=== PATIENT | female | born 1985 | race Caucasian/White ===

== ENCOUNTER 2018-07-09 00:16 | Emergency (ER) | payer MEDICAID ==
[~2018-07-09] VITALS: Ht 170.2 cm; Wt 54.5 kg
[2018-07-09] MEDS ORDERED: NO HOME MEDS (00:35)
--- NOTE | 2018-07-09 00:49 | NUR ---
Patient returns from CT. She was escorted to CT with CAROLYNN [place].
[2018-07-09 00:55] LABS: CLARITY,URINE CLOUDY (Clear); COLOR,URINE YELLOW (Yellow); GLUCOSE, URINE NEGATIVE (Neg); KETONES,URINE TRACE mg/dl (Neg); LEUKOCYTE ESTERASE ,URINE NEGATIVE (Neg); NITRITES, URINE NEGATIVE (Neg); OCCULT BLOOD,URINE LARGE (Neg); PROTEIN,URINE >=300 mg/dl (Neg); URINE HCG NEGATIVE (NEG); UROBILINOGEN,URINE 0.2 E.U/dL (0.2-1.0)
[2018-07-09 01:00] LABS: UA COLLECTION TYPE CLN CATCH MIDSTREAM
[2018-07-09 01:06] LABS: URINE AMPHETAMINE SCREEN NEGATIVE (Neg); URINE BARBITUATE SCREEN NEGATIVE (Neg); URINE BENZODIAZEPINES SCREEN NEGATIVE (Neg); URINE CANNABINOID SCREEN POSITIVE (Neg); URINE COCAINE SCREEN NEGATIVE (Neg); URINE METHADONE SCREEN NEGATIVE (Neg); URINE OPIATE SCREEN NEGATIVE (Neg); URINE PHENCYCLIDINE SCREEN NEGATIVE (Neg)
[2018-07-09 01:07] LABS: BASOPHILS % (AUTO) 0.6 % (0-1); EOSINOPHILS % (AUTO) 0.6 % (0-6); HEMATOCRIT 43.8 % (35.0-45.0); HEMOGLOBIN 14.6 g/dl (12.0-16.0); LYMPHOCYTES % (AUTO) 29.4 % (21-51); MEAN CORPUSCULAR HEMOGLOBIN 32.1 PG (27.0-31.0); MEAN CORPUSCULAR HGB CONC 33.3 g/dL (33.0-36.5); MEAN CORPUSCULAR VOLUME 96.5 FL (78-98); MEAN PLATELET VOLUME 7.7 FL (7.4-10.4); MONOCYTES # (AUTO) 0.5 X10'3 (0-0.9); MONOCYTES % (AUTO) 7.3 % (2-12); NEUTROPHILS # (AUTO) 4.3 X10'3 (1.8-7.7); NEUTROPHILS % (AUTO) 62.1 % (42-75); PLATELET COUNT 237 X10'3 (140-440); RED BLOOD COUNT 4.54 X10'6 (4.20-5.60); RED CELL DISTRIBUTION WIDTH 13.4 % (11.5-14.5); WHITE BLOOD COUNT 6.9 X10'3 (4.5-11.0)
--- NOTE | 2018-07-09 01:09 | NUR ---
Patient offered to obtain medication from MD to help calm her down. She politely declines and states, "I don't take medication, thank you." She requests to perform yoga in her room which is allowed as long as she is not disturbing other patients.
--- NOTE | 2018-07-09 01:17 | NUR ---
Patient up and pacing back and forth. Phone retrieved to get her mother's phone number. When I offered her the phone to pull the contact information she became agitated again stating, "Days!? How many days are you going to keep me here against my will!?" despite having explained how a 5150 hold will potentially proceed several times. She declines to obtain the information from the phone at this time. Phone placed in patient's chart for the inevitable need for it sooner rather than later.
[2018-07-09 01:18] LABS: BACTERIA,URINE 2+ /HPF (Neg); MUCUS STRANDS MANY /LPF (Neg); SQUAMOUS EPITHELIAL CELL,UR MANY /LPF (FEW)
[2018-07-09 01:19] LABS: RBC,URINE 0-2 /HPF (0-2)
[2018-07-09 01:19] LABS: ALANINE AMINOTRANSFERASE 11 U/L (12-78); ALBUMIN 4.5 G/DL (3.4-5.0); ALBUMIN/GLOBULIN RATIO 1.4 (1.1-1.5); ALKALINE PHOSPHATASE 59 IU/L (46-116); ANION GAP 18 (8-16); ASPARTATE AMINO TRANSFERASE 21 U/L (10-37); BILIRUBIN,TOTAL 0.4 MG/DL (0.1-1.0); BLOOD UREA NITROGEN 14 MG/DL (7-18); BUN/CREATININE RATIO 17.3 (6.6-38.0); CALCIUM 9.4 MG/DL (8.5-10.1); CHLORIDE 109 MMOL/L (99-107); CREATININE 0.81 MG/DL (0.40-0.90); GLUCOSE 101 MG/DL (70-104); POTASSIUM 3.2 MMOL/L (3.5-5.1); SODIUM 146 MMOL/L (135-145); TOTAL CARBON DIOXIDE 18.9 MMOL/L (24-32); TOTAL PROTEIN 7.8 G/DL (6.4-8.2); eGFR 80 ML/MIN
[2018-07-09 01:28] LABS: ETHANOL 0.203 GM/DL (0.0-0.010)
--- NOTE | 2018-07-09 01:28 | NUR ---
Patient approaches nurses stating with an agressive tone stating that she is going to leave because she has children and a job. She states, "what am I supposed to tell my job? What if people talk shit about me while my children are at school. How long do I have to be here?" Patient was again explained the process of being on a 5150 hold. She is not satisfied with my explaination and states that, "I have done nothing wrong. I can drink in my own home and be pulled out because that faggot called the police on me?" Patient states that she is not mad at me or the staff, but her tone and demeanor indicate otherwise. After our conversation, patient ran back to her back and swung the curtain shut. Curtains re-opened and now patient is sobbing uncontrollably in bed.
--- NOTE | 2018-07-09 01:34 | NUR ---
Patient requesting more water and states, "just point me in the right direction, I guess I have nothing else to do!". Water provided.
--- NOTE | 2018-07-09 01:38 | NUR ---
Patient yelling across the room demanding her lab results and, "justification for me being here!" Patient asks again why she is here and I politely try to explain while she yells curse words at me and saying that she is going to [facility] the [facility].
--- NOTE | 2018-07-09 01:51 | NUR ---
Patient requesting a, "buddhist to meditate in. You guys are being really obnoxious and disturbing me" despite our conversation being nothing more than low whispers. Ear plugs provided and then patient got up to the restroom.
--- NOTE | 2018-07-09 01:54 | NUR ---
Patient is unusually quiet in restroom and has been in and out several times since arriving a short time ago. Knocked on the door to the restroom and found the patient sitting against the door. She states, "I'm trying to find a quiet place to go where no one can see me." I explained to her that she may not hide in the restroom and we need to be able to see her for her safety. Patient went back to her room on her own and is now sobbing.
[2018-07-09] MEDS ORDERED: potassium Cl 20 mEq SR tablet PO STA (02:01)
[2018-07-09] MEDS ORDERED: LORazepam 2 mg/ml vial IM ONE (02:05)
[2018-07-09] MEDS ORDERED: diphenhydrAMINE 50 mg/ml inj IM ONE (02:05)
[2018-07-09] MEDS ORDERED: haloperidol lactate 5mg/ml inj IM ONE (02:05)
--- NOTE | 2018-07-09 02:19 | NUR ---
Patient got up to restroom again to sit and sob hysterically in the restroom. I was able to convince the patient to get back to bed on her own accord. I spoke to the patient again about the use of medications to get her through this crisis which she agrees to accept. Spoke to Dr. Grissom who places IM orders as well as potassium replacement. Patient educated on medications and medications provided with her permission. I attempted to reassure the patient that we are here to help her and make sure that she gets home as quickly and safely as possible which she seemed to accept.
--- NOTE | 2018-07-09 03:08 | NUR ---
Patient is sleeping comfortably on her left side with even, unlabored breathing and no signs of distress.
--- NOTE | 2018-07-09 04:48 | NUR ---
telepsych completed. Psychiatrist recommends keeping the patient on a 5150 and re-evaluating in 8-10 hours once the ETOH has cleared her system. Patient fell back to sleep after telepsych was completed.
[2018-07-09] MEDS ORDERED: LORazepam 1 MG tablet PO PRN (06:30)
[2018-07-09] MEDS: folic acid 1mg tablet PO SCH ×2 (08:00→20:00)
[2018-07-09] MEDS: thiamine 100mg tablet PO SCH ×2 (08:00→20:00)
--- NOTE | 2018-07-09 11:29 | NUR ---
patient back to bed sleeping, got up breifly for water and bathroom and put herself back to bed
--- NOTE | 2018-07-09 12:45 | NUR ---
relieving RN for lunch, pt is sleeping, resp even and unlabored
--- NOTE | 2018-07-09 17:35 | NUR ---
patient approached the desk and asked to use the phone to call home , she is talking quietly on her bed now.
--- NOTE | 2018-07-09 17:52 | NUR ---
provided hygiene supplies
--- NOTE | 2018-07-09 18:30 | NUR ---
Report rec;d, care assumed, resting in bed. No needs voiced at this time. Will continue to monitor.
--- NOTE | 2018-07-09 19:05 | NUR ---
Up to [facility]
--- NOTE | 2018-07-09 19:32 | NUR ---
Ate dinner without issues, currently resting in bed with eyes closed.
--- NOTE | 2018-07-09 20:35 | NUR ---
Resting in bed, appearing to sleep, will monitor.
--- NOTE | 2018-07-09 21:21 | NUR ---
Resting in bed, appearing to sleep soundly, though easily aroused. Refused medications. Will continue to monitor.
--- NOTE | 2018-07-09 22:46 | NUR ---
Resting in bed, appearing to sleep with eyes closed, resp even and unlabored. Will monitor.
--- NOTE | 2018-07-09 23:34 | NUR ---
Resting in bed, appearing to sleep
--- NOTE | 2018-07-10 00:14 | NUR ---
Eyes closed, resting in bed with even and unlabored resp. Appearing to sleep comfortably without new issues or concerns noted. Will continue to monitor.
--- NOTE | 2018-07-10 01:23 | NUR ---
In bed, appearing to sleep.
--- NOTE | 2018-07-10 02:58 | NUR ---
Appearing to sleep, no new concerns or issues noted. Will continue to monitor.
--- NOTE | 2018-07-10 03:52 | NUR ---
Resting in bed with eyes closed, appearing to sleep without new issues or concerns noted, will continue to monitor for changes.
--- NOTE | 2018-07-10 05:04 | NUR ---
Resting in bed, appearing to sleep, will continue to monitor.
--- NOTE | 2018-07-10 05:45 | NUR ---
Vital signs taken by Tech. Cooperative with cares this morning, will monitor.
[2018-07-10 06:04] VITALS: BP 115/79
--- NOTE | 2018-07-10 06:30 | NUR ---
report recieved. pt resting comfortably in bed. no needs at this time.
[2018-07-10] MEDS: thiamine 100mg tablet PO SCH (08:12)
[2018-07-10] MEDS: folic acid 1mg tablet PO SCH (08:12)
--- NOTE | 2018-07-10 08:34 | NUR ---
pt calm and resting in bed. occationally uses restroom. discharge papers given. pt to be sent upstairs to behavior health unit when room is ready.
--- NOTE | 2018-07-10 09:35 | NUR ---
pt calm and cooperative. Escorted upstairs to mental health unit with RN and security public safety officer. pt sent with her belongings.
== END 2018-07-10 09:35 | disposition home or self-care (01) ==
LOC: ER 00:18
DX: F23 Brief psychotic disorder (principal); F10.129 Alcohol abuse with intoxication, unspecified; F12.90 Cannabis use, unspecified, uncomplicated; E87.6 Hypokalemia; Y90.0 Blood alcohol level of less than 20 mg/100 ml
CPT/HCPCS: 36415; 70450; 80053; 80305; 80320; 81001; 81025; 84443; 85025; 96372; 99285; J1200; J1630; J2060

== ENCOUNTER 2018-07-10 07:57 | Inpatient (IN) | payer MEDICAID ==
[~2018-07-10] VITALS: Ht 172.7 cm; Wt 53.2 kg
[~2018-07-10 07:57] MED LIST: NO HOME MEDS
[2018-07-10 10:39] VITALS: BP 142/102
--- NOTE | 2018-07-10 12:45 | NUR ---
ADMISSION NOTE Nursing Progress Note: Patient admitted at 0936 from [facility] ED Legal hold: 5150 Client on voluntary/involuntary status for GD/DTS/DTO: DTS/DTO Report received from nurse with use of SBAR[]. Why are they here: The patient was placed on 5150 by police after she was physically aggressive with her and was unable to calm down in the presence of police. She has been having on-going concerns with anxiety, depression, paranoia, suicidal ideation, inability to cope. She minimized her actions and blamed her . She exhibits poor judgment. She was unable to formulate a viable safety plan and is a danger to herself and others. Assessment What has happened this shift: The patient was admitted to unit. Her belongings were inventoried and she was oriented to unit. She is depressed and tearful at times. Denies suicidal or homicidal thoughts and states, "I just want to go home to my children." Minimizes incident with police stating, "it's just the alcohol, I would never do that if I had not been drinking." She reports that she lives with her ex as "temporary roommates" and they are actually . 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 She reports having "trouble" with alcohol her whole life and states her father was an alcoholic and left the family 25 years ago, her mother also drinks and is mentally ill and has 3 sisters with similar issues. She has never been diagnosed with a mental condition or had any therapy or help. She is willing and states she would like to be helped. She took a shower, is alert and oriented, calm and cooperative. She rated her level of depression as a 1 and a 1-10 scale. S/I, H/I: Denies A/VH: Denies Sleep:None ADL's:Self Group attendance:Yes Were meds taken:N/A Any med S/E: N/A Mental Status Exam Appearance:Neat and clean Eye contact:Good Behavior:Cooperative, calm, tearful Speech:Normal Mood:Depressed Affect:Tearful, sad Thought process:Intact Thought Content:Worried about kids Cognition:A&Ox4 Insight: Poor Judgment: Poor Interventions PRN's used: None Therapeutic interventions: 1:1 assessment, q15m safety checks, therapeutic listening and environment, reassurance Restraints/seclusion/emergency medication: None Justification of Continued Inpatient Treatment: Patient in crisis, recent altercation with ex- in the home, recent anxiety, paranoia and suicidal thoughts, exhibits poor judgment. She is unable to formulate a safety plan.
[2018-07-10] MEDS ORDERED: tuberculin, purif. prot. deriv. 5 units/0.1ml ID ONE (12:55)
[2018-07-10] MEDS ORDERED: mag hydrox/Alum hydrox/simeth 30ml oral suspension PO PRN (12:55)
[2018-07-10] MEDS ORDERED: acetaminophen 325mg tablet PO PRN ×2 (12:55)
[2018-07-10] MEDS ORDERED: magnesium hydroxide 30ml (MOM) UD suspension PO PRN (12:55)
[2018-07-10 19:00] VITALS: BP 128/86
[2018-07-10] MEDS: LORazepam 1 MG tablet PO PRN (21:33)
--- NOTE | 2018-07-10 23:39 | NUR ---
ADMISSION NOTE Nursing Progress Note: Patient admitted at 0936 from [facility] ED Legal hold: 5150 Client on voluntary/involuntary status for GD/DTS/DTO: DTS/DTO Report received from nurse with use of KEKE Morrell RN Why are they here: The patient was placed on 5150 by police after she was physically aggressive with her and was unable to calm down in the presence of police. She has been having on-going concerns with anxiety, depression, paranoia, suicidal ideation, inability to cope. She minimized her actions and blamed her . She exhibits poor judgment. She was unable to formulate a viable safety plan and is a danger to herself and others. Assessment What has happened this shift: Pt was sitting in bed at change of shift. 1:1 assessment completed at bedside. Pt denies s/i, denies h/i. Appears to be some what anxious, depressed. Pt states she is here because "My called the police on me because I was drunk and in his face." Pt was initially withdrawn stating she is hoping being here will provide her with "the ability to cope better with my feelings and emotions rather than substance abuse." Pt later joined peers for [employer] before going to bed. Skin assessment was completed and pt was noted to have a small bruise on her right elizabeth and right arm and states she acquired these during her arrest. Pt also reports both wrists are sore she states "from the handcuffs." Pt states she hasn't lost any weight recently but her appetite isnt good today. She states she hasn't been sleeping well. S/I, H/I: Denies A/VH: Denies Sleep: reports difficulty sleeping ADL's:Self Group attendance:Yes Were meds taken:N/A Any med S/E: N/A Mental Status Exam Appearance:Neat and clean Eye contact:Good Behavior:Cooperative, calm, quiet Speech:Normal Mood:Depressed Affect: initially constricted, but brightened somewhat after she spent time playing board games w/peers. Thought process: linear Thought Content:Worried about kids Cognition:A&Ox4 Insight: fair Judgment: poor Interventions PRN's used: Ativan Therapeutic interventions: 1:1 assessment, q15m safety checks, therapeutic listening and environment, reassurance Restraints/seclusion/emergency medication: None Justification of Continued Inpatient Treatment: Patient in crisis, recent altercation with ex- in the home, recent anxiety, paranoia and suicidal thoughts, exhibits poor judgment. She is unable to formulate a safety plan. Addendum: 07/11/18 at 0020 by Katarina Paige RN Correction: Nursing progress note (not admission note)
[2018-07-11 08:00] VITALS: BP 122/81
[2018-07-11 08:52] LABS: CHOL/HDL RATIO 1.9 (0.00-4.99); CHOLESTEROL 199 MG/DL (0-200); HDL CHOLESTEROL 105 MG/DL (35-60); LDL CHOLESTEROL 84 MG/DL (50-100); TRIGLYCERIDES 56 MG/DL (20-135)
--- NOTE | 2018-07-11 18:00 | NUR ---
Nursing Progress Note Legal hold: 5150 Client on involuntary status for: DTS/DTO Report received from nurse with use of KEKE Hawkins RN Why are they here: The patient was placed on 5150 by police after she was physically aggressive with her and was unable to calm down in the presence of police. She has been having on-going concerns with anxiety, depression, paranoia, suicidal ideation, inability to cope. She minimized her actions and blamed her . She exhibits poor judgment. She was unable to formulate a viable safety plan and is a danger to herself and others. Assessment What has happened this shift: Patient is observed sitting in her room at change of shift. She becomes tearful when discussing the events that led her here. She states that she was supposed to be discharging home in a couple of days but when she talked to her live-in ex- he informed her that the children are scared and he filed a restraining order against her. She becomes tearful and cries. She states that she recoginizes that she has a problem with drinking and discusses coping skills she has already learned in her time here. She is encouraged to attend groups and and engage in taking care of herself for improved healing. She is observed attending groups during the day. S/I, H/I: Denies A/VH: Denies Sleep: slep 6hrs NOC ADL's: Independant Group attendance:Yes Were meds taken:N/A Any med S/E: N/A Mental Status Exam Appearance:Neat and clean Eye contact: direct Behavior: Cooperative, friendly Speech: soft tone, normal rate/rythm Mood: Depressed Affect: congruent to mood with brightening Thought process: linear Thought Content:Worried about her family and where to go from here Cognition: A&Ox4 Insight: fair Judgment: poor Interventions PRN's used: no Therapeutic interventions: 1:1 therapeutic assessment, active listening that included positive feedback, medication education, and monitoring, maintained safe therapeutic milieu, encouraged to attend groups, Q 15 min safety checks. Restraints/seclusion/emergency medication: None Justification of Continued Inpatient Treatment: Patient is unable to formulate a safety plan. Continued therapeutic support and medication management needed to provide stabilization, prevent decompensation while decreasing risk to patient.
[2018-07-11 19:00] VITALS: BP 134/92
[2018-07-11] MEDS: LORazepam 1 MG tablet PO PRN (20:19)
--- NOTE | 2018-07-12 02:37 | NUR ---
Nursing Progress Note Legal hold: 5150 Client on involuntary status for: DTS/DTO Report received from nurse with use of KEKE Guerra RN Why are they here: The patient was placed on 5150 by police after she was physically aggressive with her and was unable to calm down in the presence of police. She has been having on-going concerns with anxiety, depression, paranoia, suicidal ideation, inability to cope. She minimized her actions and blamed her . She exhibits poor judgment. She was unable to formulate a viable safety plan and is a danger to herself and others. Assessment What has happened this shift: Pt was in group room at change of shift. 1:1 assessment completed at bedside. Pt denies s/i. States she is feeling better and hoping to be discharged tomorrow. She is making a plan for DC and states she is going to find someplace to stay and does not plan to return home and live w/ex . Pt would like a referral to a therapist before she leaves. Pt has been writing out a plan that involves working on her mental health and getting well "mentally". She states she is planning on attending AA meetings. S/I, H/I: Denies A/VH: Denies Sleep: reports sleep is good but requested ativan because she is somewhat anxious and thinks it will help with sleep. ADL's: Independant Group attendance: no evening groups Were meds taken:N/A Any med S/E: N/A Mental Status Exam Appearance:Neat and clean Eye contact: direct Behavior: Cooperative Speech: soft tone, normal rate/rythm Mood: Depressed Affect: constricted Thought process: linear Thought Content: Pt is working on a plan to get well Cognition: A&Ox4 Insight: fair Judgment: poor Interventions PRN's used: ativan Therapeutic interventions: 1:1 therapeutic assessment, active listening that included positive feedback, medication education, and monitoring, maintained safe therapeutic milieu, encouraged to attend groups, Q 15 min safety checks. Restraints/seclusion/emergency medication: None Justification of Continued Inpatient Treatment: Patient is unable to formulate a safety plan. Continued therapeutic support and medication management needed to provide stabilization, prevent decompensation while decreasing risk to patient.
[2018-07-12 08:00] VITALS: BP 115/85
--- NOTE | 2018-07-12 12:12 | NUR ---
Discharge Note: Pt dc'd to self at 1213. Pt escorted from the unit by staff. Discharge Instructions explained to the patient and she verbalized understanding and signed. No medications ordered at discharge and pt did not have followup appts scheduled. Pt given list of referrals and pt stated she would schedule her f/u appt. Pt sent with smoking cessation information. All belongings returned to the pt and she signed agreement that she received all her stuff. Pt has bright affect and able to verbalize reasonable plan for discharge.
== END 2018-07-12 12:15 | disposition home or self-care (01) | DRG 756 ==
LOC: ADULT MH 07:57
PROVIDERS: ADMIT Psychiatry & Neurology Psychiatry; ATTEND Psychiatry & Neurology Psychiatry
DX: F41.9 Anxiety disorder, unspecified (principal); E87.6 Hypokalemia; F10.10 Alcohol abuse, uncomplicated; G47.00 Insomnia, unspecified; F12.90 Cannabis use, unspecified, uncomplicated; Y90.0 Blood alcohol level of less than 20 mg/100 ml
CPT/HCPCS: 36415; 80061; 83036; 84132; 87070